=== PATIENT | male | born 1990 | race African-American/Black ===

== ENCOUNTER 2017-05-26 15:54 | Emergency (ER) | payer BC ==
[2017-05-26] MEDS ORDERED: Lidocaine 1% (PF) 30 ML VIAL ONE (16:13)
== END 2017-05-26 16:47 | disposition home or self-care (01) ==
LOC: ERS 15:54
DX: L03.317 Cellulitis of buttock (principal); Z79.899 Other long term (current) drug therapy
CPT/HCPCS: 99283; J2001

== ENCOUNTER 2017-08-09 16:46 | Emergency (ER) | payer SELFPAY | END 2017-08-09 17:50 | disposition home or self-care (01) | LOC: ERS 16:46 | DX: J02.0 Streptococcal pharyngitis (principal); Z79.899 Other long term (current) drug therapy | CPT/HCPCS: 87081; 87430; 99283 ==